=== PATIENT | male | born 1965 | race Caucasian/White ===

== ENCOUNTER → 2024-09-19 | Outpatient (CLI) | payer OTHER ==
--- NOTE | 2024-09-20 07:27 | XR ---
EXAMINATION TYPE: XR shoulder complete RT DATE OF EXAM: 09/19/2024 4:36 PM COMPARISON: None CLINICAL INDICATION: Male, 58 years old with history of [id number] RT SHLD PAIN; YCH, pain TECHNIQUE: XR shoulder complete RT; examined in AP, internally rotated and scapular Y projections. FINDINGS: No evidence of acute osseous pathology, joint dislocation, or soft tissue swelling. The remaining po rtions of the visualized chest are unremarkable. Degeneration changes of the acromion, distal clavic le with osteophyte formation. There is osteophyte formation of the glenoid and humeral head. There is joint space narrowing of glenohumeral joint. IMPRESSION: 1. No acute osseous pathology. 2. Mild shoulder osteoarthrosis. [facility], , 09/20/2024 7:25 AM
== END | disposition home or self-care (01) ==
LOC: RADXRYALE 16:24
PROVIDERS: ATTEND Physician Assistant
DX: M19.011 Primary osteoarthritis, right shoulder (principal)